=== PATIENT | male | born 1975 | race Two or more races ===

== ENCOUNTER 2024-10-04 06:41 | Day surgery (SDC) | payer BC, SELFPAY ==
--- NOTE | 2024-10-03 07:00 | EKG_ITS ---
[facility] Test Date: 2024-10-03 Pat Name: MYRANDA GARDUNO Department: Room: - Gender: Male Senior Product Manager: BASHIR : 1975 Requested By: Ryland Velarde Order Number: [id number] Reading MD: Ryland Velarde Measurements Intervals [place] Rate: 70 P: 51 IN: 183 QRS: -69 QRSD: 118 T: 90 QT: 357 QTc: 387 Interpretive Statements SINUS RHYTHM INFERIOR MYOCARDIAL INFARCTION , OF INDETERMINATE AGE [40+ ms Q WAVE AND/OR ST/T ABNORMALITY IN II/aVF] ANTEROSEPTAL MYOCARDIAL INFARCTION , OF INDETERMINATE AGE [40+ ms Q WAVE IN V1-V4] MODERATE T-WAVE ABNORMALITY, CONSIDER LATERAL ISCHEMIA [-0.1+ mV T WAVE IN I/aVL/V5/V6] No previous ECG available for comparison /[id number]
[2024-10-03 09:06] LABS: Basophils # (Auto) 0.1 Thou/mm3 (0.0-0.2); Basophils % (Auto) 1 % (0-2.5); Eosinophils # (Auto) 0.3 Thou/mm3 (0.0-0.5); Eosinophils % (Auto) 3 % (0-10); Hematocrit 47.1 % (41.0-53.0); Hemoglobin 16.2 g/dL (13.5-16.0); Immature Granulocytes % (Auto) 0 % (0-0); Immature Granulocytes Auto 0.02 Thou/mm3 (0.00-0.00); Lymphocytes % (Auto) 39 % (10-50); Mean Corpuscular HGB Conc 34.4 g/dl (31.0-37.0); Mean Corpuscular Hemoglobin 32.2 pg (25.0-35.0); Mean Corpuscular Volume 94 fL (80-100); Monocytes # (Auto) 0.8 Thou/mm3 (0.0-0.8); Monocytes % (Auto) 8 % (0-12); Neutrophils % (Auto) 49 % (37-80); Nucleated Red Blood Cell % 0 /100 WBC (0); Platelet Count 304 Thou/mm3 (140-440); RDW Standard Deviation 44.9 fL (35.1-43.9); Red Blood Count 5.03 Miln/mm3 (4.50-5.90); White Blood Count 10.2 Thou/mm3 (3.8-10.6)
[2024-10-03 09:09] LABS: Partial Thromboplastin Time 25.7 Seconds (22.0-36.0); Prothrombin Time 11.2 Seconds (9.0-12.2)
[2024-10-03 09:12] LABS: Anion Gap 8 (7-16); BUN/Creatinine Ratio 21 Ratio (12-20); Blood Urea Nitrogen 19 mg/dL (9-23); Calcium 9.6 mg/dL (8.3-10.6); Carbon Dioxide 28.7 mMol/L (20.0-31.0); Chloride 104 mMol/L (98-107); Creatinine (Component) 0.9 mg/dL (0.6-1.3); Glucose 112 mg/dL (74-106); Osmolality,Calculated 284 (275-295); Potassium 3.8 mMol/L (3.4-5.1); Sodium 141 mMol/L (136-145); eGFR > 60 See Note
[2024-10-03 16:33] VITALS: BMI 35.2
[2024-10-04] VITALS (10 sets, daily range): BP systolic 117–156; BP diastolic 82–108; PULSE 89–105; RESP 11–20; TEMP 36.6–36.8; O2SAT 92–96
--- NOTE | 2024-10-04 09:00 | XR_ITS ---
Examination: AP chest single view TECHNIQUE: AP semiupright portable chest single view Exam date and time: October 04, 2024 0941 hours INDICATIONS: Postop pacemaker insertion. FINDINGS: Cardiac leads satisfactory position Normal heart size The lungs are clear The osseous structures are intact IMPRESSION: Cardiac leads satisfactory position No pneumothorax
[2024-10-04] MEDS: VANCOMYCIN/NS 1 GM IVPB 200 ML IV (09:34)
--- NOTE | 2024-10-04 11:38 | PC.NURSE ---
09 patient is awake, alert, breathing unlabored, s/p AICD insertion by Dr. Escamilla, dressing to left chest dry with no bleeding, report received from [facility], patient to recover for 2 hrs until vancomycin antibiotic infused. chest xray ordered, arm sling ordered, resume home medications including aspirin and metformin. Keflex antibiotic will be called in by MD to start at home. 933 vancomycin infusion started 934 chest xray completed 1138 patient is awake, alert, breathing unlabored, dressing dry with no bleeding, patient able to eat breakfast food tray with no nausea or vomiting, chest xray completed with no pneumothorax seen on images, vancomycin antibiotic completed, arm slim has been applied, discharge instructions given to patient and family member, patient discharged home in wheelchair with all belongings.
--- NOTE | 2024-10-04 15:14 | ESOP_ITS ---
RE: MALATHI KENNEDY : 1975 DATE OF OPERATION: 10/04/2024 PROCEDURE PERFORMED: 1. Implantation of dual-chamber automatic implantable cardioverter defibrillator (AICD), CPT 72855. 2. Conscious sedation 1 hour duration. DIAGNOSES: Ischemic cardiomyopathy, chronic systolic heart failure, high risk for sudden cardiac . HISTORY AND INDICATIONS: Mr. Kennedy is a 49-year-old male with a past medical history of coronary artery disease, previous acute myocardial infarction, extensive anterolateral myocardial infarction in 04/2023. The patient did very well, had a stent placement and angioplasty of LAD, ejection fraction was 40%, but continued to go down, most recent ejection fraction only 30% with ischemic cardiomyopathy. The patient has congestive heart failure class II, well compensated, high risk for sudden cardiac . Meets criteria for ICD implantation for primary clearance of sudden cardiac , hence ICD implant was recommended. DESCRIPTION OF PROCEDURE: The patient was brought to cardiac catheterization laboratory. Informed consent was obtained. Left subclavian area was prepped in sterile fashion, 1% lidocaine local anesthesia was given. Conscious sedation with 4 mg Versed and 100 mcg of Fentanyl was given. Left subclavian vein was cannulated with micropuncture technique. A 2 guide-wire was introduced. A linear incision was made with blunt dissection. Pocket was created. Hemostasis was secured. A 7-Samoan sheath was introduced. A 7-Samoan single coil integrated high voltage right ventricular lead was advanced. Right ventricular apex. Active fixation was performed. Thresholds were excellent. After obtaining satisfactory threshold, the lead was anchored with pectoral fascia using 2-0 silk suture. A 6-Samoan sheath was introduced and 6-Samoan atrial lead by [employer] was advanced into the right atrial appendage. The right atrial threshold was excellent. After obtaining satisfactory threshold, both leads were anchored to the pectoral fascia with 2-0 silk suture and then [employer] ICD automatic implantable cardioverter defibrillator then attached to the leads, positioned in the pocket, secured to the pectoral fascia with 2-0 silk suture. Subcutaneous tissue closed using 2-0 chromic continuous sutures. Skin was closed using jose m. The patient had no complications. Chest x-ray showed no pneumothorax. The patient was given antibiotic 1 g of Ancef before the procedure and 1000 mg of vancomycin and discharged home the same day. The details of the device as follows. The device are implanted [employer] ICD, Macrina SURESH, MRI safe, and the model number is [id number], serial number is [id number]. The atrial lead is [employer] Tendril [id number]. The serial number is [id number]. The high voltage lead, integrated Durata lead by [employer] [id number], serial number [id number]. The thresholds are excellent. Atrial T-waves are measured to be sensing at 2.7 millivolts, the lead impedance 550, threshold 0.5 volts. Right ventricle high voltage lead, impedance 530, R-wave is more than 12 millivolts and threshold 0.5 volts. The high voltage impedance is 105. The device is programmed rate of radial pacing 60 to 130 and ventricular tachycardia at 150 monitor only, 181 ATP x3, 200 and above ATP x1, shock x4-6. SUMMARY OF FINDINGS: Successful implantation of AV sequential dual-chamber automatic implantable cardioverter defibrillator. COMPLICATIONS: No complications. ESTIMATED BLOOD LOSS: Less than 5 mL. DT: 13:54:49 TT: 15:13:00 Ref: [id number] - TID: [id number]
== END 2024-10-04 11:38 | disposition home or self-care (01) ==
PROVIDERS: PCP Specialist; Referring Provider Internal Medicine Cardiovascular Disease; Visit Provider Internal Medicine Cardiovascular Disease
PROC: 0JH608Z Insertion of Defibrillator Generator into Chest Subcutaneous Tissue and Fascia, Open Approach (ICD-10-PCS; CPT 33249; principal; 2024-10-04 07:30)
DX: I25.5 Ischemic cardiomyopathy (principal); I50.22 Chronic systolic (congestive) heart failure; I25.2 Old myocardial infarction; I25.10 Atherosclerotic heart disease of native coronary artery without angina pectoris; Z01.810 Encounter for preprocedural cardiovascular examination
CPT/HCPCS: 33249; 36415; 80048; 85025; 85610; 85730; 93005; 99152; 99153; A4565; A4649; C1777; C1894; C1898; J0171; J0461; J0690; J1643; J2250; J2310; J2371; J3010; J3370; J3490; J2305